=== PATIENT | female | born 1965 | race Caucasian/White ===

== ENCOUNTER 2023-10-15 14:59 | Emergency (ER) | payer BC ==
[2023-10-15 15:46] LABS: BASOPHILS ABSOLUTE AUTO 0.1 x10-3/uL (0.0-0.1); BASOPHILS PERCENT AUTO 0.8 % (0.2-1.5); EOSINOPHILS ABSOLUTE AUTO 0.3 x10-3/uL (0.0-0.8); EOSINOPHILS PERCENT AUTO 4.8 % (0.6-8.1); HEMATOCRIT 41.6 % (34.2-48.2); HEMOGLOBIN 13.5 g/dL (11.4-15.5); LYMPHOCYTES ABSOLUTE AUTO 1.9 x10-3/uL (1.0-4.4); LYMPHOCYTES PERCENT AUTO 28.9 % (18.4-52.1); MEAN CORPUSCULAR HEMOGLOBIN 28.7 pg (23.9-33.9); MEAN CORPUSCULAR HGB CONC 32.4 g/dL (31.9-34.8); MEAN CORPUSCULAR VOLUME 88.4 fL (76.7-100.5); MEAN PLATELET VOLUME 9.2 fL (7.1-12.4); MONOCYTES ABSOLUTE AUTO 0.7 x10-3/uL (0.3-1.0); MONOCYTES PERCENT AUTO 10.4 % (4.4-15.7); NEUTROPHILS ABSOLUTE AUTO 3.7 x10-3/uL (1.5-6.3); NEUTROPHILS PERCENT AUTO 55.1 % (30.8-76.2); PLATELET COUNT,PLT 182 x10(3)uL (151-488); RED CELL DISTRIBUTION WIDTH 14.3 % (12.3-16.5); WHITE BLOOD CELL COUNT,WBC 6.7 x10-3/uL (3.0-10.3)
[2023-10-15 15:54] LABS: BILIRUBIN,URINE NEGATIVE (NEGATIVE); GLUCOSE,URINE NORMAL (NORMAL); KETONES,URINE NEGATIVE (NEGATIVE); LEUKOCYTE ESTERASE,URINE NEGATIVE (NEGATIVE); NITRITE,URINE NEGATIVE (NEGATIVE); OCCULT BLOOD,URINE NEGATIVE (NEGATIVE); PROTEIN,URINE NEGATIVE (NEGATIVE); UROBILINOGEN,URINE NORMAL (NEGATIVE)
[2023-10-15 15:55] LABS: BLOOD UREA NITROGEN,BUN 10 mg/dL (7-18); BUN/CREATININE RATIO 12.5 (9-20); CALCIUM 8.7 mg/dL (8.6-10.2); CARBON DIOXIDE,CO2 29 mmol/L (21-32); CHLORIDE,CL 107 mmol/L (100-110); CREATININE 0.8 mg/dL (0.55-1.02); ESTIMATED GFR 84 mL/min (>60); GLUCOSE RANDOM 100 mg/dL (80-116); POTASSIUM,K 4.3 mmol/L (3.5-5.3); SODIUM,NA 142 mmol/L (135-145)
[2023-10-15 16:00] LABS: A/G RATIO 0.9; ALANINE AMINOTRANSFERASE,ALT 16 U/L (12-36); ALBUMIN 3.4 g/dL (3.2-4.6); ALKALINE PHOSPHATASE 78 IU/L (56-112); ASPARTATE AMNIOTRANSFERASE,AST 13 IU/L (5-25); BILIRUBIN TOTAL 0.4 mg/dL (0.1-1.3)
[2023-10-15 16:16] LABS: C-REACTIVE PROTEIN < 0.50 mg/dL (<0.50); TROPONIN I < 4.0 pg/mL (4.0-60.3)
[2023-10-15 16:18] LABS: APPEARANCE,URINE CLEAR (CLEAR); BACTERIA,URINE FEW (NS); COLOR,URINE YELLOW (YELLOW); RBC,URINE 0-5 (0-5); SQUAMOUS EPITHELIAL CELLS,UR FEW (NS,R,O); WBC,URINE 0-5 (0-5)
== END 2023-10-15 16:45 | disposition home or self-care (01) ==
LOC: FB.ED 14:59
DX: S20.212A Contusion of left front wall of thorax, initial encounter (principal); S80.211A Abrasion, right knee, initial encounter; S80.212A Abrasion, left knee, initial encounter; Z88.0 Allergy status to penicillin; Z88.8 Allergy status to other drugs, medicaments and biological substances; W19.XXXA Unspecified fall, initial encounter
CPT/HCPCS: 36415; 80053; 81001; 84484; 85025; 85379; 86140; 93005; 93010; 99283